=== PATIENT | female | born 1995 | race African-American/Black ===

== ENCOUNTER 2024-02-03 12:42 | Emergency (ER) | payer OTHER ==
[2024-02-03 13:06] VITALS: BMI 21.6
[2024-02-03 14:15] LABS: URINE APPEARANCE CLEAR; URINE BILIRUBIN NEGATIVE (NEGATIVE); URINE COLOR YELLOW; URINE GLUCOSE (UA) NEGATIVE (NEGATIVE); URINE KETONE TRACE (NEGATIVE); URINE LEUK ESTERASE NEGATIVE (NEGATIVE); URINE NITRITE NEGATIVE (NEGATIVE); URINE PROTEIN NEGATIVE (NEGATIVE)
[2024-02-03] MEDS ORDERED: ONDANSETRON 4 MG/2 ML VIAL ONE (14:16)
[2024-02-03] MEDS ORDERED: ACETAMINOPHEN INJECTION 100 ML IVPB ONE (14:16)
[2024-02-03 14:18] LABS: BASO % 0.9 % (0-2.0); EOS % 2.5 % (0-4.5); HEMATOCRIT 39.8 % (32.4-45.2); LYMPH % 46.6 % (8-40); MCH 28.9 pg (25.7-33.7); MCHC 32.6 g/dl (32.0-36.0); MEAN CELL VOLUME 88.5 fl (80-96); MEAN PLT VOLUME 7.3 fl (7.5-11.1); MONO % 9.9 % (3.8-10.2); NEUT % 40.1 % (42.8-82.8); PLATELET COUNT 219 10^3/uL (134-434); WHITE BLOOD COUNT 3.6 K/mm3 (4.0-10.0)
[2024-02-03 14:31] LABS: HCG,QUALITATIVE URINE Negative
[2024-02-03] MEDS: SODIUM CHLORIDE 0.9% 500 ML INFUS.BAG IV ONE (14:35)
[2024-02-03] MEDS: ACETAMINOPHEN 1000 MG/100 ML BAG IVPB ONE (14:36)
[2024-02-03] MEDS: ONDANSETRON 4 MG/2 ML VIAL IVPUSH ONE (14:36)
[2024-02-03 14:42] LABS: CALCIUM 9.2 mg/dL (8.5-10.1)
[2024-02-03 14:43] LABS: ALBUMIN 3.5 g/dl (3.4-5.0); BLOOD UREA NITROGEN 12.2 mg/dL (7-18)
[2024-02-03 14:46] LABS: CREATININE 0.7 mg/dL (0.55-1.3)
[2024-02-03 14:47] LABS: BILIRUBIN,TOTAL 0.5 mg/dL (0.2-1)
[2024-02-03 15:59] VITALS: RESP 18
[2024-02-03] MEDS ORDERED: KETOROLAC TROMETHAMINE 30 MG/1 ML VIAL ONE (16:24)
[2024-02-03] MEDS: KETOROLAC TROMETHAMINE 30 MG/1 ML VIAL IVPUSH ONE (16:28)
[2024-02-03 19:06] VITALS: BP 109/65; PULSE 59; TEMP 98.5
== END 2024-02-03 19:38 | disposition home or self-care (01) ==
LOC: JER 12:42
PROC: 3E030NZ Introduction of Analgesics, Hypnotics, Sedatives into Peripheral Vein, Open Approach (ICD-10-PCS; principal; 2024-02-03)
PROC: 3E0303Z Introduction of Anti-inflammatory into Peripheral Vein, Open Approach (ICD-10-PCS; 2024-02-03)
PROC: 3E030GC Introduction of Other Therapeutic Substance into Peripheral Vein, Open Approach (ICD-10-PCS; 2024-02-03)
DX: R11.0 Nausea (principal); M79.10 Myalgia, unspecified site; R51.9 Headache, unspecified; R10.13 Epigastric pain; R10.30 Lower abdominal pain, unspecified; M79.652 Pain in left thigh; R53.83 Other fatigue; R42 Dizziness and giddiness; Z20.822 Contact with and (suspected) exposure to COVID-19
CPT/HCPCS: 0241U-QW; 36415; 76830-TC; 80053; 81003; 83690; 84703; 85025; 87086; 96374; 96375; 99284-25; J0131

== ENCOUNTER 2024-02-26 13:55 | Emergency (ER) | payer OTHER ==
[2024-02-26 14:04] VITALS: BP 113/72; PULSE 78; RESP 18; TEMP 98; BMI 25.0
[2024-02-26] MEDS ORDERED: ONDANSETRON *ODT* 4 MG TABLET ONE (15:59)
[2024-02-26] MEDS ORDERED: FAMOTIDINE 20 MG TABLET ONE (15:59)
[2024-02-26] MEDS ORDERED: MAG HYDROX/AL HYDROX/SIMETH 30 ML UNIT-DOSE CUP ONE (15:59)
[2024-02-26] MEDS: FAMOTIDINE 10 MG TABLET PO ONE (16:06)
[2024-02-26] MEDS: MAG HYDROX/AL HYDROX/SIMETH 30 ML UNIT-DOSE CUP PO ONE (16:07)
[2024-02-26] MEDS: ONDANSETRON *ODT* 4 MG TABLET SL ONE (16:09)
[2024-02-26 16:31] LABS: BASO % 0.6 % (0-2.0); EOS % 1.4 % (0-4.5); HEMATOCRIT 40.6 % (32.4-45.2); HEMOGLOBIN 13.6 GM/dL (10.7-15.3); LYMPH % 22.6 % (8-40); MCH 29.2 pg (25.7-33.7); MCHC 33.4 g/dl (32.0-36.0); MEAN CELL VOLUME 87.4 fl (80-96); MEAN PLT VOLUME 7.4 fl (7.5-11.1); MONO % 9.9 % (3.8-10.2); NEUT % 65.5 % (42.8-82.8); PLATELET COUNT 220 10^3/uL (134-434); RBC 4.65 M/mm3 (3.60-5.2); RDW 13.4 % (11.6-15.6); WHITE BLOOD COUNT 5.6 K/mm3 (4.0-10.0)
[2024-02-26 17:01] LABS: POTASSIUM 4.7 mmol/L (3.5-5.1)
[2024-02-26] MEDS ORDERED: ACETAMINOPHEN 325 MG TABLET (FP) ONE (17:19)
[2024-02-26 17:30] LABS: PH,URINE 8.5 (5.0-8.0); URINE APPEARANCE CLEAR; URINE BILIRUBIN NEGATIVE (NEGATIVE); URINE COLOR YELLOW; URINE GLUCOSE (UA) NEGATIVE (NEGATIVE); URINE KETONE NEGATIVE (NEGATIVE); URINE LEUK ESTERASE NEGATIVE (NEGATIVE); URINE NITRITE NEGATIVE (NEGATIVE); URINE PROTEIN NEGATIVE (NEGATIVE)
[2024-02-26] MEDS: ACETAMINOPHEN 325 MG TABLET (FP) PO ONE (17:33)
[2024-02-26 17:38] LABS: HCG,QUALITATIVE URINE Negative
[2024-02-26 18:19] LABS: ALBUMIN 3.7 g/dl (3.4-5.0); CALCIUM 9.6 mg/dL (8.5-10.1)
[2024-02-26 19:24] LABS: BILIRUBIN,TOTAL 0.6 mg/dL (0.2-1); CREATININE 0.8 mg/dL (0.55-1.3); TOT PROT 7.2 g/dl (6.4-8.2)
== END 2024-02-26 20:32 | disposition home or self-care (01) ==
LOC: JER 13:55
DX: R10.13 Epigastric pain (principal); R11.2 Nausea with vomiting, unspecified
CPT/HCPCS: 36415; 80053; 81003; 83690; 84703; 85025; 99283-25; Q0162